=== PATIENT | female | born 1990 | race Caucasian/White ===

== ENCOUNTER 2021-05-25 07:14 | Inpatient (IN) | payer MEDICAID ==
[~2021-05-25] VITALS: Ht 172.7 cm; Wt 106.6 kg
[2021-05-25] MEDS ORDERED: METHYLERGONOVINE MALEATE 0.2 MG/ML IM PRN (07:45)
[2021-05-25] MEDS ORDERED: DEXT 5%/LR + PITOCIN 20UNITS/L 1,000 ML IV SCH ×2 (07:45→09:45)
[2021-05-25] MEDS ORDERED: BUTORPHANOL TARTRATE 2 MG/ML VIAL IV PRN (07:45)
[2021-05-25] MEDS ORDERED: LIDOCAINE HCL 1% 20ML VIAL (Pyxis) INJ INFIL SCH (07:45)
[2021-05-25] MEDS ORDERED: NALOXONE HCL 0.4 MG/ML 1ML VIAL IM PRN (07:45)
[2021-05-25] MEDS ORDERED: AMPICILLIN 2GM in NS 100ML 100 ML IV SCH (08:00)
[2021-05-25] MEDS ORDERED: LACTATED RINGERS 1,000 ML IV SCH (08:00)
[2021-05-25] MEDS ORDERED: PENICILLIN G POTASSIUM 5 MMU in DEXT 5% WATER 100 ML IV SCH (09:00)
[2021-05-25 09:21] LABS: CLARITY URINE CLOUDY (CLEAR); COLOR URINE YELLOW (YELLOW); KETONES URINE NEGATIVE (NEGATIVE); LEUKOCYTE ESTERASE URINE 3+ (NEGATIVE); NITRITE URINE NEGATIVE (NEGATIVE); OCCULT BLOOD URINE TRACE (NEGATIVE); PROTEIN URINE NEGATIVE (NEGATIVE); SPECIFIC GRAVITY URINE 1.017 (1.005-1.030)
[2021-05-25 09:25] LABS: BASOPHILS % 0.4 % (0.0-2.0); EOSINOPHILS % 0.5 % (0.0-5.0); HEMATOCRIT. 35.4 % (36.0-48.0); HEMOGLOBIN. 11.9 g/dL (12.0-16.0); LYMPHOCYTES % 12.9 % (20.0-50.0); MEAN CORPUSCULAR HEMOGLOBIN 30.5 pg (28.0-32.0); MEAN CORPUSCULAR VOLUME 90.7 fL (81.0-99.0); MEAN PLATELET VOLUME 10.6 fl (7.4-10.4); MONOCYTES % 6.8 % (2.0-8.0); NEUTROPHILS % 79.4 % (40.0-76.0); PLATELET 207 x1000/uL (130-400)
[2021-05-25 09:31] LABS: INR 0.9; PARTIAL THROMBOPLASTIN TIME 27.4 sec (23.4-31.0); PROTHROMBIN TIME 9.9 sec (9.6-11.0)
[2021-05-25 09:39] LABS: *AMPHETAMINES SCREEN URINE NEGATIVE (NEGATIVE); *BARBITURATES SCREEN URINE NEGATIVE (NEGATIVE); *BENZODIAZEPINES SCREEN URINE NEGATIVE (NEGATIVE); *COCAINE SCREEN URINE NEGATIVE (NEGATIVE); CANNABINOID URINE SCREEN NEGATIVE (NEGATIVE); METHADONE URINE SCREEN NEGATIVE (NEGATIVE); OPIATES URINE SCREEN NEGATIVE (NEGATIVE); PHENCYCLIDINE URINE SCREEN NEGATIVE (NEGATIVE)
[2021-05-25] MEDS ORDERED: OXYCODONE HCL/ACETAMINOPHEN 5/325MG TABLET PO PRN (09:45)
[2021-05-25] MEDS ORDERED: RHO(D) IMMUNE GLOBULIN 300 MCG/SYR IM PRN (09:45)
[2021-05-25] MEDS ORDERED: IBUPROFEN 400MG TABLET PO PRN (09:45)
[2021-05-25] MEDS ORDERED: IBUPROFEN 800MG TABLET PO PRN (09:45)
[2021-05-25] MEDS ORDERED: BENZOCAINE/LANOLIN/ALOE VERA SPRAY TOP PRN (09:45)
[2021-05-25] MEDS ORDERED: NALOXONE HCL 0.4MG/ML VIAL IV PRN (12:15)
[2021-05-25] MEDS ORDERED: PENICILLIN G POTASSIUM 2.5 MMU in DEXTROSE 5% WATER 50 ML IV SCH (13:00)
[2021-05-25 13:23] LABS: HEPATITIS B SURFACE ANTIGEN NEGATIVE
[2021-05-25] MEDS ORDERED: AMPICILLIN 1,000 MG in SODIUM CHLORIDE 0.9% 50 ML IV SCH (14:00)
[2021-05-25] MEDS ORDERED: INFLUENZA VACCINE 05/PF 0.5 ML SYRINGE IM ONE (15:30)
[2021-05-25 19:30] VITALS: BP 116/49
[2021-05-26 04:00] VITALS: BP 105/50
[2021-05-26 06:22] LABS: BASOPHILS % 0.5 % (0.0-2.0); EOSINOPHILS % 0.5 % (0.0-5.0); HEMATOCRIT. 29.7 % (36.0-48.0); HEMOGLOBIN. 10.4 g/dL (12.0-16.0); LYMPHOCYTES % 15.9 % (20.0-50.0); MEAN CORPUSCULAR HEMOGLOBIN 31.3 pg (28.0-32.0); MEAN CORPUSCULAR VOLUME 89.5 fL (81.0-99.0); MEAN PLATELET VOLUME 10.6 fl (7.4-10.4); NEUTROPHILS % 77.1 % (40.0-76.0); PLATELET 184 x1000/uL (130-400); RED BLOOD CELL COUNT 3.32 mill/uL (4.2-5.4); RED CELL DISTRIBUTION WIDTH 15.2 % (11.6-14.6)
[2021-05-26] MEDS ORDERED: FERR325T6 MT (06:50)
[2021-05-26] MEDS ORDERED: PREN-176 MT (06:50)
[2021-05-26] MEDS ORDERED: IBUP-2029 MT (06:50)
[2021-05-26 07:30] VITALS: BP 99/50
[2021-05-26] MEDS ORDERED: FERROUS SULFATE 325MG TABLET PO SCH (07:30)
[2021-05-26] MEDS ORDERED: PRENATAL VIT/FE FUMARATE/FA TABLET PO SCH (09:00)
== END 2021-05-26 14:30 | disposition home or self-care (01) | DRG 560 ==
LOC: OBSVTOIN 07:14 → 8 EST LDRP 07:14 → 8EST 11:56
PROVIDERS: ADMIT Obstetrics & Gynecology; ATTEND Obstetrics & Gynecology
PROC: 10E0XZZ Delivery of Products of Conception, External Approach (ICD-10-PCS; principal; 2021-05-25)
PROC: 0HQ9XZZ Repair Perineum Skin, External Approach (ICD-10-PCS; 2021-05-25)
DX: O69.81X0 Labor and delivery complicated by cord around neck, without compression, not applicable or unspecified (principal); Z37.0 Single live birth; O70.0 First degree perineal laceration during delivery; Z20.822 Contact with and (suspected) exposure to COVID-19; Z3A.38 38 weeks gestation of pregnancy
CPT/HCPCS: 36415; 80305; 81003; 85025; 86592; 86703; 86762; 86850; 86900; 87340; 87426; 90686; 99281; J0290; J0595; J2310; J2540; J2590; J3490; J7060